=== PATIENT | female | born 1945 | race Caucasian/White ===

== ENCOUNTER 2016-12-19 08:14 | Day surgery (SDC) | payer OTHER ==
[2016-12-19] MEDS ORDERED: LR 1,000 ML ONE (11:30)
[2016-12-19] MEDS ORDERED: KEFZOL 1 GM/D5W 50 ML ONE (11:30)
[2016-12-19 11:57] LABS: MANUAL DIFF NEEDED? NO
[2016-12-19 12:06] LABS: BASO% 1.1 % (0.0-0.8); EOS# 0.35 X1000 (0.0-0.7); EOS% 5.6 % (0.0-10.0); HEMATOCRIT 38.3 % (37.0-47.0); HEMOGLOBIN 12.8 g/dL (12.0-16.0); LYMPH# 1.43 X1000 (1.2-3.4); MCH 29.9 PG (27-31); MCHC 33.4 g/dL (33-37); MCV 89.5 FL (81-99); MONO# 0.58 X1000 (0.11-0.59); MONO% 9.3 % (1.7-9.3); PLT 200 X1000 (130-400); RBC 4.28 XMIL (4.2-5.4)
[2016-12-19 12:26] LABS: AGAP 14; BUN 11 mg/dL (8-22); CALCIUM 9.2 mg/dL (8.8-10.2); CHLORIDE 105 mmol/L (98-107); COSMO 283; POTASSIUM 3.8 mmol/L (3.5-5.1); SODIUM 142 mmol/L (136-145); TCO2 23 mmol/L (25-35)
[2016-12-19] MEDS ORDERED: XYLOCAINE 2% JELLY UROJECT ONE (13:15)
--- NOTE | 2016-12-19 13:33 | EKG Report ---
Test Performed on : 12/19/2016 12:38:11 PM Test Reason : PHYSICIAN ORDER Blood Pressure : / mmHG Vent. Rate : 050 BPM Atrial Rate : 050 BPM P-R Int : 172 ms QRS Dur : 092 ms QT Int : 440 ms P-R-T Axes : 083 031 058 degrees QTc Int : 401 ms Sinus bradycardia. Otherwise normal ECG No previous ECGs available Confirmed by Diane CHANG, Michael Leong ([id number]) on 12/20/2016 5:22:38 PM
--- NOTE | 2016-12-19 15:07 | OPERATIVE NOTE ---
PROCEDURE DATE: 12/19/2016 PREOPERATIVE DIAGNOSES: 1. Severe hydronephrosis and flank pain. 2. Ureteropelvic junction stone, very large in size, in the right kidney, right ureter. POSTOPERATIVE DIAGNOSES: 1. Severe hydronephrosis and flank pain. 2. Ureteropelvic junction stone, very large in size, in the right kidney, right ureter. 3. Uncertain risk for stricture disease from a chronically impacted right ureteral stone. PROCEDURES: 1. Cystoscopy. 2. Retrograde ureterography. 3. Placement of a double-J stent. 4. Extracorporeal shockwave lithotripsy. ANESTHESIA: General LMA. COMPLICATIONS: None. SPECIMEN: None. DRAINS: A stent. DISPOSITION: Stable. FINDINGS: As described in the body of the dictation. COURSE OF PROCEDURE: The patient was placed in the lithotomy position, prepped and draped per routine. Urethral cystoscopy revealed no intravesical tumor, stones, ulcerations, or polyps and both ureters are in normal position in the interureteric ridge. Pursuant to that, a wire was passed through the right ureter where an afflicting stone could be seen well below the kidney within the proximal ureter with some difficulty. It was possible to get a wire around this stone but given its trajectory it was unclear that it had not gone submucosal or possibly retroperitoneal. The decision was made to use a universal catheter, which has its opening come out the side of the distal tip of the catheter at the angle to sort of negotiate the wire around the stone. Pursuant to that, catheter was inserted. Upon abutting the stone wire was put through this catheter and we were able to negotiate this wire and what was realistically the renal pelvis in the renal calices. Over this wire, after removing that universal catheter an open-ended catheter was inserted and was allowed to follow the stiff part of that wire into what was believed to be the renal pelvis. The wire was removed. The retrograde ureterogram did confirm position of the catheter around the impacted calculus, large in size. Having being comfortable position, the wire was returned to the renal pelvis and curled therein and a 4.8-Mexican x 22-30 cm double-J stent was passed over the wire, into the kidney. Pressure was applied and wire removed, leaving complete curls in the kidney and in the urinary bladder all consistent with proper positioning. Patient was taken out of lithotomy position and was placed in the supine position with knees up on wedge. Shockwave Lithotripter was positioned over the stone and lithotripsy was accomplished to the stone, advancing from the distal stones to proximal stone as impacted in the proximal ureter. It was seen to spread apart readily and was treated as well as possible in its entirety with the available 3000 shocks. The patient tolerated the procedure well. Was awakened and sent to recovery in stable condition.
[2016-12-19 16:16] VITALS: BP 158/79
[2016-12-19] MEDS ORDERED: DIPRIVAN 1% ONE (16:16)
[2016-12-20] MEDS ORDERED: EPHEDRINE ONE (09:49)
[2016-12-20] MEDS ORDERED: ZOFRAN ONE (09:49)
[2016-12-20] MEDS ORDERED: ROBINUL ONE (09:49)
[2016-12-20] MEDS ORDERED: XYLOCAINE-MPF 2% ONE (09:50)
[2016-12-20] MEDS ORDERED: LR 1,000 ML ONE (09:50)
== END 2016-12-19 16:15 | disposition home or self-care (01) ==
LOC: OR 08:14
PROVIDERS: ATTEND Urology
DX: N13.2 Hydronephrosis with renal and ureteral calculous obstruction (principal); I10 Essential (primary) hypertension; E11.9 Type 2 diabetes mellitus without complications; E78.00 Pure hypercholesterolemia, unspecified; F17.210 Nicotine dependence, cigarettes, uncomplicated
CPT/HCPCS: 80048; 85025; 87088; 93005; 93010; J0690; J7120